=== PATIENT | male | born 1970 ===

== ENCOUNTER 2017-01-29 23:03 | Emergency (ER) | payer MEDICAID ==
[2017-01-29 23:12] VITALS: BMI 26.2
[2017-01-29 23:17] VITALS: BP 149/98; PULSE 89; RESP 17; TEMP 98.5; O2SAT 99
--- NOTE | 2017-01-29 23:18 | ED PDOC ---
Arrival/HPI - General Time Seen by Provider: 01/29/17 23:07 Historian: Patient - History of Present Illness Narrative History of Present Illness (Text): 01/29/17 23:14 46yo male with PMHx of hypertension, hypercholestrol, MS,BIBA for complaint of left sided mid back pain that radiates to his abdomen an hour ago. States pain came suddenly and was sharp. Pain is currently improved. He notes past history of chronic back pain, but states he sees a pain management and took Percocet today. He denies nausea, vomiting, hematuria, urinary hesitancy/frequency, ripping/tearing upper back pain, any other complaint. Past Medical History - Provider Review Nursing Documentation Reviewed: Yes Family/Social History - Physician Review Nursing Documentation Reviewed: Yes Family/Social History: Unknown Family HX Allergies/Home Meds Allergies/Adverse Reactions: Allergies No Known Allergies Allergy (Verified 01/29/17 23:11) Review of Systems - Physician Review All systems were reviewed & negative as marked: Yes - Review of Systems Constitutional: Normal Eyes: Normal ENT: Normal Respiratory: Normal Cardiovascular: Normal Gastrointestinal: Normal Genitourinary Male: Normal Musculoskeletal: Back Pain Skin: Normal Neurological: Normal Endocrine: Normal Hemo/Lymphatic: Normal Psychiatric: Normal Physical Exam Vital Signs Reviewed: Yes Vital Signs Temp Pulse Resp BP Pulse Ox 01/29/17 23:16 98.5 F 89 17 149/98 H 99 Temperature: Afebrile Blood Pressure: Normal Pulse: Regular Respiratory Rate: Normal Appearance: Positive for: Well-Appearing, Non-Toxic, Comfortable Pain Distress: None Mental Status: Positive for: Alert and Oriented X 3 - Systems Exam Head: Present: Atraumatic, Normocephalic Pupils: Present: PERRL Extroacular Muscles: Present: EOMI Conjunctiva: Present: Normal Mouth: Present: Moist Mucous Membranes Neck: Present: Normal Range of Motion Respiratory/Chest: Present: Clear to Auscultation, Good Air Exchange. No: Respiratory Distress, Accessory Muscle Use Cardiovascular: Present: Regular Rate and Rhythm, Normal S1, S2. No: Murmurs Abdomen: Present: Normal Bowel Sounds. No: Tenderness, Distention, Peritoneal Signs Back: Present: Paraspinal Tenderness (Mild left sided paraspinous tenderness). No: CVA Tenderness, Midline Tenderness, Pain with Leg Raise Upper Extremity: Present: Normal Inspection. No: Cyanosis, Edema Lower Extremity: Present: Normal Inspection. No: Edema Neurological: Present: GCS=15, CN II-XII Intact, Speech Normal Skin: Present: Warm, Dry, Normal Color. No: Rashes Psychiatric: Present: Alert, Oriented x 3, Normal Insight, Normal Concentration Medical Decision Making ED Course and Treatment: 01/30/17 00:15 Pt presented to ED with stated history. He ambulates with a cane secondary to his chronic back pain. He was not in any distress while in ED. Per RNOlga pt declined Toradol. Abdominal CT was ordered to r/o renal colic Bones: No acute fracture. Degenerative disease at the level of L5/S1, with disc space narrowing, endplate changes and vacuum. IMPRESSION: Minimally enlarged lymph nodes within the retroperitoneum, a nonspecific finding. Degenerative disease within the lumbar spine, as detailed above Result was DW the pt. He stated on arrival that his pain improved prior to seeing him in ED. He will be DC home. He already takes Percocet and have a pain management. Advised to f/u with his PMD/pain management. TRT ED for any new or worsening symptoms. - RAD Interpretation Radiology Orders: 01/29/17 23:13 ABD & PELVIS W/O PO OR IV CONT [CT] Stat - Medication Orders Current Medication Orders: Discontinued Medications Ketorolac Tromethamine (Toradol) 60 mg IM STAT STA Stop: 01/29/17 23:14 Last Admin: 01/30/17 00:00 Dose: Not Given Non-Admin Reason: Patient Refused IM Administration Charges Document 01/30/17 00:00 [facility] (Rec: 01/30/17 00:00 [facility]) Charges for Administration # of IM Administrations 0 Disposition/Present on Arrival - Present on Arrival Any Indicators Present on Arrival: No History of DVT/PE: No History of Uncontrolled Diabetes: No Urinary Catheter: No History of Decub. Ulcer: No History Surgical Site Infection Following: None - Disposition Have Diagnosis and Disposition been Completed?: Yes Diagnosis: Back pain Disposition: HOME/ ROUTINE Disposition Time: 00:20 Patient Plan: Discharge Condition: STABLE Discharge Instructions (ExitCare): Chronic Back Pain (ED) Additional Instructions: Follow up with your doctor Return to ED for any new or worsening symptoms Referrals: [facility] [place] - Follow up with primary
--- NOTE | 2017-01-30 08:13 | CT ---
PROCEDURE: CT Abdomen and Pelvis without Oral or IV contrast. HISTORY: back/abdominal pain COMPARISON: None available. TECHNIQUE: Contiguous axial images of the abdomen and pelvis. No oral or IV contrast administered. Coronal and Sagittal reformats generated and reviewed. Radiation dose: Total exam DLP = 468.07 mGy-cm. This CT exam was performed using one or more of the following dose reduction techniques: Automated exposure control, adjustment of the mA and/or kV according to patient size, and/or use of iterative reconstruction technique. FINDINGS: There is limited evaluation of the solid organs without the administration of IV contrast. LOWER THORAX: No visible consolidation, pleural effusion, or pneumothorax. LIVER: Unremarkable unenhanced appearance. GALLBLADDER AND BILE DUCTS: Unremarkable unenhanced appearance. PANCREAS: Unremarkable unenhanced appearance. SPLEEN: 2.0 x 1.7 cm probable splenule. Otherwise unremarkable unenhanced appearance of the spleen. ADRENALS: Unremarkable unenhanced appearance. KIDNEYS AND URETERS: No hydronephrosis or obstructing renal calculus. BLADDER: The urinary bladder appears unremarkable. REPRODUCTIVE: Unremarkable. APPENDIX: The appendix not identified. No secondary signs of acute appendicitis. BOWEL: The stomach is nondistended. Lack of oral contrast limits evaluation for bowel pathology. The bowel loops appear within normal limits of caliber without evidence of intestinal obstruction. PERITONEUM: No significant free fluid. No definite free air. LYMPH NODES: Sub cm retroperitoneal lymph nodes, nonspecific. VASCULATURE: No aortic aneurysm. BONES: Degenerative changes. Vacuum disc phenomenon, intervertebral disc space narrowing, and endplate changes at L5-S1. OTHER FINDINGS: None. IMPRESSION: Nonspecific retroperitoneal lymph nodes. Degenerative changes of the spine as above. Preliminary impression was provided by virtual radiologic.
== END 2017-01-30 00:30 | disposition home or self-care (01) ==
LOC: MERGE 23:03 → ED 23:03
DX: M54.9 Dorsalgia, unspecified (principal); I10 Essential (primary) hypertension; E78.00 Pure hypercholesterolemia, unspecified